=== PATIENT | female | born 1950 | race Caucasian/White ===

== ENCOUNTER 2017-03-29 17:35 | Emergency (ER) | payer BC ==
--- NOTE | 2017-03-29 18:12 | Emergency Department Record ---
History of Present Illness - General Chief Complaint: Abdominal Pain Stated Complaint: ABDOMINAL PAIN Time Seen by Provider: 03/29/17 18:06 Source: Patient, Family Mode of Arrival: Ambulatory Limitations: No limitations - History of Present Illness Initial Comments: 66 yo male presents with mid upper abdominal pain since 4am. He reports the pain woke him from sleep. He has had this pain in the past with gastritis. He is under the care of a GI doctor in [facility]. He tested positive for gastritis. No vomiting. No chest pain. The pain does radiate to the back. No NSAID us. He is on a PPI. He just completed Flagyl for a positive H. Pylori. MD Complaint: Abdominal pain -: Hour(s) (16) Location: Epigastric, LUQ, RUQ Radiation: L flank, R flank Migration to: Epigastric Severity: Severe Quality: Aching Consistency: Constant Improves With: Nothing Worsens With: Nothing Associated Symptoms: Anorexia - Related Data Home Medications Medication Instructions Recorded Confirmed Last Taken Amlodipine Besylate/Benazepril 1 each PO DAILY 03/29/17 03/29/17 Unknown [Lotrel 10-20 mg Capsule] Aspirin [Aspir-Low] 81 mg PO DAILY 03/29/17 03/29/17 Unknown Atorvastatin Calcium 20 mg PO DAILY 03/29/17 03/29/17 Unknown Gabapentin [Neurontin] 800 mg PO BID 03/29/17 03/29/17 03/29/17 Hydralazine HCl 50 mg PO BID 03/29/17 03/29/17 03/29/17 Lisinopril [Zestril] 5 mg PO DAILY 03/29/17 03/29/17 03/29/17 Omeprazole [Prilosec] 20 mg PO DAILY 03/29/17 03/29/17 03/29/17 Previous Rx's Medication Instructions Recorded Sucralfate [Carafate] 1 g PO BID #200 [facility] [place] 03/29/17 Allergies Allergy/AdvReac Type Severity Reaction Status Date / Time meloxicam AdvReac BEHAVIORAL Verified 03/29/17 18:01 CHANGES Travel Screening - Travel/Exposure Within Last 30 Days Have you traveled within the last 30 days?: No Review of Systems Constitutional: Denies: Chills, Fever, Malaise, Weakness Eyes: Denies: Eye discharge, Eye pain ENT: Denies: Congestion, Throat pain Respiratory: Denies: Cough, Dyspnea, Hemoptysis, Stridor, Wheezes Cardiovascular: Denies: Chest pain, Palpitations, Syncope Endocrine: Denies: Fatigue Gastrointestinal: Reports: As per HPI, Abdominal pain, Nausea. Denies: Diarrhea , Vomiting Genitourinary: Denies: Dysuria, Urgency Musculoskeletal: Reports: Back pain. Denies: Arthralgia, Neck pain Skin: Denies: Bruising, Change in color, Rash Neurological: Denies: Headache Psychiatric: Denies: Anxiety Hematological/Lymphatic: Denies: Blood Clots, Easy bleeding, Easy bruising, Swollen glands Past Medical History - SOCIAL HISTORY Smoking Status: Never smoker Alcohol Use: None Drug Use: None - RESPIRATORY Hx Respiratory Disorders: No - CARDIOVASCULAR Hx Cardio Disorders: Yes Hx Hypertension: Yes - NEURO Hx Neuro Disorders: Yes Hx Neuropathy: Yes - GI Hx GI Disorders: Yes Hx Reflux: Yes Comment:: gastritis - Hx Genitourinary Disorders: No - ENDOCRINE Hx Endocrine Disorders: No - MUSCULOSKELETAL Hx Musculoskeletal Disorders: No - PSYCH Hx Psych Problems: No - HEMATOLOGY/ONCOLOGY Hx Hematology/Oncology Disorders: No Family Medical History Any Significant Family History?: No Physical Exam - General General Appearance: Alert, Oriented x3, Cooperative, No acute distress Limitations: No limitations - Head Head exam: Normal inspection - Eye Eye exam: Normal appearance, PERRL. negative: Conjunctival injection - ENT ENT exam: Normal exam, Mucous membranes moist Ear exam: Normal external inspection Nasal Exam: Normal inspection Mouth exam: Normal external inspection - Neck Neck exam: Normal inspection, Full ROM. negative: Tenderness - Respiratory Respiratory exam: Normal lung sounds bilaterally. negative: Respiratory distress - Cardiovascular Cardiovascular Exam: Regular rate, Normal rhythm, Normal heart sounds - GI/Abdominal GI/Abdominal exam: Soft, Tenderness (tender mid abdomen but very soft). negative: Guarding, Pulsatile mass, Rebound - Rectal Rectal exam: Deferred - exam: Deferred - Extremities Extremities exam: Normal inspection, Full ROM, Normal capillary refill. negative: Tenderness - Back Back exam: Reports: Normal inspection, Full ROM. Denies: Muscle spasm, Rash noted, Tenderness - Neurological Neurological exam: Alert, Normal gait, Oriented X3, Reflexes normal - Psychiatric Psychiatric exam: Normal affect, Normal mood - Skin Skin exam: Dry, Intact, Normal color, Warm Course Vital Signs 03/29/17 17:58 Temperature 98.2 F Pulse Rate 76 Respiratory 22 Rate Blood Pressure 175/92 Pulse Ox 98 - Reevaluation(s) Reevaluation #1: The labs were reviewed No acute changes on the CBC The AST is 74 and ALT is 105 with normal Lipase, Alk Phos and Bilirubin 03/29/17 18:54 03/29/17 19:11 The patient is feeling much better. His nausea is controlled. He does have some low back pain still. He has known spinal stenosis. Waiting for CT. 03/29/17 20:[address] scan was reviewed. He has a hiatel hernia and diverticulosis without diverticulitis. No acute process. He is very comfortable. We discussed all the results including the mild increase in AST and ALT. He has follow up tomorrow with his PCP. Carafate will be added to his medications. Medical Decision Making - Lab Data Result diagrams: 03/29/17 18:08 03/29/17 18:08 Disposition Disposition: Discharge Clinical Impression: Abdominal pain Qualifiers: Abdominal location: unspecified location Qualified Code(s): R10.9 - Unspecified abdominal pain Disposition: Home, Self-Care Condition: (1) Good Instructions: Abdominal Pain (ED) Additional Instructions: Follow up tomorrow as scheduled Return if worse or any new concerns Add Carafate as directed to your medications Prescriptions: Sucralfate [Carafate] 1 g PO BID #200 [facility] [place] Forms: Patient Portal Access Time of Disposition: 20:27 Quality - Quality Measures Quality Measures: N/A - Blood Pressure Screening Does Patient Have Any of the Following: No Blood Pressure Classification: Hypertensive Reading Systolic Measurement: 175 Diastolic Measurement: 92 Screening for High Blood Pressure: < Pre-Hypertensive BP, F/U Documented > [ [id number]] Pre-Hypertensive Follow-up Interventions: Referral to alternative/primary care provider.
[2017-03-29] MEDS: ONDANSETRON HCL IV 4 MG/2 ML VIAL IV ONE (18:22)
[2017-03-29] MEDS: PANTOPRAZOLE SODIUM IV 40 MG VIAL IVP ONE (18:22)
[2017-03-29] MEDS: 0.9 % SODIUM CHLORIDE 1,000 ML BAG IV ONE (18:22)
[2017-03-29] MEDS: MAGNESIUM HYDROXIDE/AL HYDROX 30 ML, LIDOCAINE VISC 2% 200 MG PO ONE ×2 (18:22)
[2017-03-29] MEDS: HYDROMORPHONE HCL 1 MG/ML SYRINGE IVP ONE (18:22)
[2017-03-29 18:23] LABS: BASO % 0.6 % (0-6); EOS % 0.8 % (0-6); GRAN % 61.6 % (47-80); HEMATOCRIT 44.2 % (35.0-47.0); HEMOGLOBIN 15.2 gm/dl (11.6-16.0); LYMPH % 26.7 % (16-45); MEAN CORPUSCULAR HEMOGLOBIN 30.3 pg (27-33); MEAN CORPUSCULAR HGB CONC 34.4 g/dl (32-36); MEAN PLATELET VOLUME 11.7 fl (7.4-10.4); MONO % 10.3 % (0-9); PLATELET COUNT 293 K/uL (130-400); RED BLOOD COUNT 5.02 M/uL (3.80-5.40); RED CELL DISTRIBUTION WIDTH 12.9 % (11.5-14.5); WHITE BLOOD COUNT W/O DIFF 6.3 K/uL (4.2-12.2)
[2017-03-29 18:36] LABS: BLOOD UREA NITROGEN 17 mg/dL (8-23); EST GLOMERULAR FILTRATION RATE 59 mL/min
[2017-03-29 18:37] LABS: TOTAL PROTEIN 7.3 g/dL (6.6-8.7)
[2017-03-29 18:38] LABS: INR 1.02; PARTIAL THROMBOPLASTIN TIME 25.1 SECONDS (24.5-39.1)
[2017-03-29 18:39] LABS: GLUCOSE,RANDOM 131 mg/dL (74-109)
[2017-03-29 18:41] LABS: ALT/SGPT 105 U/L (<33); AST/SGOT 74 U/L (10.0-35.0)
[2017-03-29 18:42] LABS: ALBUMIN 4.5 g/dL (4.0-5.0); ALKALINE PHOSPHATASE 90 U/L (35-104); LIPASE 32 U/L (13-60)
[2017-03-29 18:45] LABS: BILIRUBIN,DIRECT < 0.2 mg/dL (0-0.3)
[2017-03-29] MEDS: DIAZEPAM 5 MG TABLET PO ONE (19:15)
[2017-03-29 20:16] LABS: URINE APPEARANCE CLEAR; URINE BILIRUBIN NEGATIVE (NEGATIVE); URINE BLOOD NEGATIVE (NEGATIVE); URINE COLOR YELLOW; URINE GLUCOSE (UA) NEGATIVE (NEGATIVE); URINE KETONE TRACE (NEGATIVE); URINE LEUKOCYTE ESTERASE NEGATIVE (NEGATIVE); URINE NITRITE NEGATIVE (NEGATIVE); URINE PROTEIN NEGATIVE (NEGATIVE)
--- NOTE | 2017-03-30 19:59 | CT SCAN REPORT ---
EXAM: CT SCAN ABDOMEN/PELVIS W CONTRAST HISTORY: BACK AND STOMACH PAIN. TECHNIQUE: CT of the abdomen and pelvis performed following IV administration of 100 mL of Omnipaque-300 contrast. Oral contrast also utilized. COMPARISON: None. FINDINGS: Limited evaluation of the lung bases shows scarring in the left lung base. Osseous structures are grossly intact. The liver, spleen, adrenal glands, pancreas, and kidneys are unremarkable. The gallbladder is present. Small hiatal hernia incidentally noted. No evidence for bowel obstruction. Moderate atheromatous change. Sigmoid diverticulosis without CT evidence for diverticulitis. Fat-containing inguinal hernias bilaterally. The appendix is not definitively seen. No pericecal inflammation. No free air or free fluid. IMPRESSION: SIGMOID DIVERTICULOSIS WITHOUT CT EVIDENCE FOR DIVERTICULITIS. NEGATIVE FOR ACUTE INTRAABDOMINAL/PELVIC PROCESS. JOB NUMBER: [id number] MTDD
== END 2017-03-29 20:43 | disposition home or self-care (01) ==
LOC: ER 17:35
DX: R10.84 Generalized abdominal pain (principal); M54.5 Low back pain; R19.7 Diarrhea, unspecified; I10 Essential (primary) hypertension
CPT/HCPCS: 74177; 80048; 80076; 81003; 83690; 85025; 85610; 85730; 96361; 96374; 96375; 99284; C9113; J1170; J2405; J7030